=== PATIENT | male | born 1950 | race Caucasian/White ===

== ENCOUNTER 2017-10-19 05:40 | Day surgery (SDC) | payer OTHER, BC ==
[~2017-10-19] VITALS: Ht 175.3 cm; Wt 84.8 kg
[~2017-10-19 05:40] MED LIST: ALL DAY ALLERGY10 M3 PO; ANTIVERT25 MG PO; AVALIDE 150/1 TABLET PO; CELEBREX200 MG PO; CENTRUM MEN'S1 EACH PO; COLACE100 MG PO; TYLENOL EXTRA500 MG PO; ULTRAM50 MG PO; VYTORIN 10/21 TABLET PO
[2017-10-19 05:58] VITALS: BP 118/57
[2017-10-19] MEDS ORDERED: HYDROMORPHONE HC2 MG PO (10:05)
[2017-10-19 12:50] VITALS: BP 104/60
[2017-10-19 19:50] VITALS: BP 104/72
[2017-10-19 23:32] VITALS: BP 104/59
[2017-10-20 03:30] VITALS: BP 108/58
[2017-10-20 07:09] VITALS: BP 96/55
[2017-10-20 10:50] VITALS: BP 100/57
[2017-10-20 14:41] VITALS: BP 113/55
[2017-10-20 19:10] VITALS: BP 113/59
[2017-10-20 23:33] VITALS: BP 107/55
[2017-10-21 03:46] VITALS: BP 126/66
[2017-10-21 07:00] VITALS: BP 116/57
== END 2017-10-21 13:15 | disposition home or self-care (01) ==
LOC: SDC 05:40 → 2SOUTH 09:23 → ENRESERV 09:52 → SDC 10:26 → ENRESERV 10:56 → 2EASTP 13:21 → SDC 16:03 → 2EASTP 10-21 13:15
DX: K43.6 Other and unspecified ventral hernia with obstruction, without gangrene (principal); K66.0 Peritoneal adhesions (postprocedural) (postinfection); L98.491 Non-pressure chronic ulcer of skin of other sites limited to breakdown of skin; G89.18 Other acute postprocedural pain; F41.9 Anxiety disorder, unspecified; I10 Essential (primary) hypertension; E78.5 Hyperlipidemia, unspecified; Z87.19 Personal history of other diseases of the digestive system; G89.29 Other chronic pain; M54.5 Low back pain; Z88.8 Allergy status to other drugs, medicaments and biological substances
CPT/HCPCS: 94799; C1781; G0378; J0330; J0690; J1100; J1170; J1650; J1885; J2405; J2710; J2795; J3010; J3475; J7120; J7643; S0020